=== PATIENT | female | born 1985 | race Caucasian/White ===

== ENCOUNTER 2016-08-11 18:46 | Emergency (ER) | payer OTHER ==
[~2016-08-11 18:46] MED LIST: LEVO2TA PO; MOTR200T40 PO; TYLE167L PO; [UNRECOGNIZED DRUG - OTHER] TOP
[2016-08-11 19:40] LABS: BASO % 0.7 % (0.0-1.0); EOS % 0.9 % (0.0-3.0); LARGE UNSTAINED CELL # 0.1 K/mm3 (0.0-0.4); LARGE UNSTAINED CELL % 2.1 % (0.0-4.0); LYMPH # 1.6 K/mm3 (1.5-4.5); LYMPH % 30.2 % (24.0-44.0); MEAN CORPUSCULAR HGB CONC 34.2 g/dl (32.0-36.5); MEAN CORPUSCULAR VOLUME 81.8 fl (80.0-96.0); MONO # 0.2 K/mm3 (0.0-0.8); MONO % 4.4 % (0.0-5.0); NEUTROPHILS # 3.3 K/mm3 (1.8-7.7); NEUTROPHILS % 61.7 % (36.0-66.0); PLATELET COUNT, AUTOMATED 184 k/mm3 (150-450); RED CELL DISTRIBUTION WIDTH 13.1 % (11.5-14.5); WHITE BLOOD COUNT 5.3 K/mm3 (4.0-10.0)
[2016-08-11 20:07] LABS: ALBUMIN 3.9 GM/DL (3.2-5.2); ALBUMIN/GLOBULIN RATIO 0.98 (1.00-1.93); ALKALINE PHOSPHATASE 49 U/L (45-117); ALT/SGPT 13 U/L (12-78); AMYLASE 34 U/L (25-115); ANION GAP 7 MEQ/L (8-16); AST/SGOT 8 U/L (15-37); BILIRUBIN,DIRECT 0.1 MG/DL (0.0-0.2); BILIRUBIN,TOTAL 0.4 MG/DL (0.2-1.0); BLOOD UREA NITROGEN 11 MG/DL (7-18); CALCIUM LEVEL 8.7 MG/DL (8.5-10.1); CARBON DIOXIDE LEVEL 27 MEQ/L (21-32); CHLORIDE LEVEL 106 MEQ/L (98-107); CREATININE FOR GFR 0.65 MG/DL (0.55-1.02); GLOMERULAR FILTRATION RATE > 60.0 (>60); GLUCOSE, FASTING 102 MG/DL (70-105); POTASSIUM SERUM 3.8 MEQ/L (3.5-5.1); SODIUM LEVEL 140 MEQ/L (136-145); T UPTAKE 30 % (30-39); TOTAL PROTEIN 7.9 GM/DL (6.4-8.2)
--- NOTE | 2016-08-11 20:43 | EDDOCDS ---
Physician Documentation [facility] Name: Noris John Age: 31 yrs Sex: Female : 1985 Arrival Date: 08/11/2016 Time: 18:46 Bed PR Private MD: SIXTO Garcia Disposition: 08/11/16 20:30 Discharged to Home/Self Care. Impression: Unspecified abdominal pain. - Condition is Stable. - Discharge Instructions: Abdominal Pain, Adult. - Prescriptions for ZOFRAN ODT 4 mg - dissolve 1 tablet by ORAL route 4 times per day As needed do not chew, do not swallow whole; 10 tablet. Simethicone 80 mg - chew 1 tablet by ORAL route after meals and before bedtime chewable tablet; 30 tablet. - Medication Reconciliation, Local Pharmacy Hours form. - Follow up: SIXTO Garcia; When: Call to arrange an appointment; Reason: Further diagnostic work-up, Recheck today's complaints, Continuance of care. Follow up: Emergency Department; When: As needed; Reason: Fever > 102F, Worsening of conditions. - Problem is new. - Symptoms are unchanged. Historical: - Allergies: no known allergies; - Home Meds: 1. levothyroxine 25 mcg Oral cap 1 cap once daily - PMHx: Thyroid problem; - PSHx: right toe surgery; - Social history: Smoking status: Patient states was never smoker of tobacco. No barriers to communication noted, The patient speaks fluent Yi, Speaks appropriately for age. - Family history: Not pertinent. - : The pt / caregiver states he / she is not on anticoagulants. Home medication list is obtained from the patient. - Exposure Risk Screening:: None identified. RESIDENTIAL YOUTH COUNSELOR: 08/11 18:53 LMP 07/18/2016 kr3 Vital Signs: 18:50 BP 128 / 68; Pulse 64; Resp 18; Temp 98.0; Pulse Ox 100% ; Weight 67.13 kg / 148 lbs; elp Height 5 ft. 7 in. (170.18 cm); Pain 5/10; 20:33 BP 115 / 66 LA Sitting (auto/reg); Pulse 56 MON; Resp 18 S; Temp 98.1(O); Pulse Ox 100% cln on R/A; Pain 0/10; 18:50 Body Mass Index 23.18 (67.13 kg, 170.18 cm) elp MDM: 19:15 Amylase Ordered. EDMS 19:15 Basic Metabolic Profile Ordered. EDMS 19:15 CBC with Diff Ordered. EDMS 19:15 Lipase Ordered. EDMS 19:15 Liver Profile Ordered. EDMS 19:15 Thyroid Profile Ordered. EDMS 19:15 UA Ordered. EDMS 19:49 Financial registration complete. gjb 20:00 [place] [place] was scanned into [employer] and attached to record. gjb 20:15 Basic Metabolic Profile Reviewed. ar2 20:15 Liver Profile Reviewed. ar2 20:15 UA Reviewed. ar2 20:15 Amylase Reviewed. ar2 20:15 CBC with Diff Reviewed. ar2 20:15 Lipase Reviewed. ar2 20:15 Thyroid Profile Reviewed. ar2 Signatures: Dispatcher [employer] Roslyn West, RN RN kmg1 Dilcia Cisneros RN RN kr3 Thee Roberts PA-C PA-C ar2 Allison Parra The chart was reviewed and I authenticate all verbal orders and agree with the evaluation and treatment provided.Attachments: 20:00 [facility] Payment Agreement gjb MTDD
--- NOTE | 2016-08-11 20:44 | EDDOCDS ---
Nurse's Notes [facility] Name: Noris John Age: 31 yrs Sex: Female : 1985 Arrival Date: 08/11/2016 Time: 18:46 Bed PR1 / 25 Private MD: SIXTO Garcia Diagnosis: Unspecified abdominal pain Presentation: 08/11 18:51 Presenting complaint: Patient states: stomach discomfort intermittent for past year. kr3 Since when having sweets noticed tingling in feet, which lasted 2 days. Reports when eats feels air into throat, nausea and vision problems. Risk factors: the patient reports no vaginal bleeding. Adult Sepsis Screening: The patient does not have new or worsening altered mentation. Patient's respiratory rate is less than 22. Systolic blood pressure is greater than 100. Patient has a qSOFA score of 0- Negative Sepsis Screen. Suicide/Homicide risk assessment- the patient denies having any suicidal and/or homicidal ideations and does not present with any other emotional, behavioral or mental health complaints. Status: The patient is a dependent. Transition of care: patient was not received from another setting of care. 18:51 Acuity: OMI Level 3 kr3 18:51 Method Of Arrival: Walkin/Carried/Asstd kr3 Triage Assessment: 18:53 General: Appears in no apparent distress, comfortable, Behavior is cooperative. Pain: kr3 Location: abdomen Pain currently is 6 out of 10 on a pain scale. Quality of pain is described as discomfort. Pt Declines HIV testing. GI: Reports bloating, gaseousness, indigestion. Derm: Skin is normal. UNDERWRITING MANAGER: 18:53 LMP 07/18/2016 kr3 Historical: - Allergies: no known allergies; - Home Meds: 1. levothyroxine 25 mcg Oral cap 1 cap once daily - PMHx: Thyroid problem; - PSHx: right toe surgery; - Social history: Smoking status: Patient states was never smoker of tobacco. No barriers to communication noted, The patient speaks fluent Cypriot, Speaks appropriately for age. - Family history: Not pertinent. - : The pt / caregiver states he / she is not on anticoagulants. Home medication list is obtained from the patient. - Exposure Risk Screening:: None identified. Screenin:40 Screening information is obtained from the patient. Fall risk: No risks identified. kmg1 Assistance ADL's: requires no assistance with activities of daily living. Abuse/DV Screen: The patient / caregiver reports he/she is: not in a situation that causes fear, pain or injury. Nutritional screening: No deficits noted. Advance Directives: Currently, there is no health care proxy. There is no active DNR order. home support is adequate. Assessment: 20:40 General: Appears in no apparent distress, comfortable, Behavior is appropriate for age, kmg1 cooperative, pleasant. Pain: Location: abdomen. GI: Abdomen is non- distended NA Abd is soft and non tender X 4 quads. Reports chronic abdominal discomfort. Vital Signs: 18:50 BP 128 / 68; Pulse 64; Resp 18; Temp 98.0; Pulse Ox 100% ; Weight 67.13 kg; Height 5 elp ft. 7 in. (170.18 cm); Pain 5/10; 20:33 BP 115 / 66 LA Sitting (auto/reg); Pulse 56 MON; Resp 18 S; Temp 98.1(O); Pulse Ox 100% cln on R/A; Pain 0/10; 18:50 Body Mass Index 23.18 (67.13 kg, 170.18 cm) [facility] Vitals: 18:50 Log In Time: August 11, 2016 at 18:48. [facility] ED Course: 18:49 Patient visited by Rosetta Mcallister PCA. elp 18:49 Radha [facility] is Private Physician. elp 18:49 Patient moved to Waiting elp 18:50 Patient visited by Rosetta Mcallister PCA. elp 18:50 Patient moved to Pre RCE elp 18:53 Triage Initiated kr3 18:55 Patient moved to Triage 2 kr3 18:55 Patient moved to Triage 1 kr3 19:08 [facility] ar2 19:08 Amaury Sainz DO is Attending Physician. ar2 19:08 Patient visited by Thee Roberts PA-C. ar2 19:34 Thyroid Profile Sent. cln 19:34 Amylase Sent. cln 19:34 Basic Metabolic Profile Sent. cln 19:34 CBC with Diff Sent. cln 19:34 Lipase Sent. cln 19:34 Liver Profile Sent. cln 19:[address] [facility] cln 20:00 [facility] Payment Agreement was scanned into [employer] and attached to record. gjb 20:14 Patient moved to PR mb9 20:30 SIXTO Garcia is Referral Physician. ar2 20:33 Patient visited by Luisa Najera PCA. cln 20:40 The patient / caregiver is instructed regarding the plan of care and ED course. kmg1 20:40 No IV's were initiated during this patient's visit. No procedures done that require kmg1 assistance. Order Results: Lab Order: Amylase; SPEC'M 08/11/16 19:31 Test: AMYLASE; Value: 34; Range: 25-115; Units: U/L; Status: F Lab Order: Basic Metabolic Profile; SPEC'M 08/11/16 19:31 Test: GLUCOSE, FASTING; Value: 102; Range: 70-105; Units: MG/DL; Status: F Test: BLOOD UREA NITROGEN; Value: 11; Range: 7-18; Units: MG/DL; Status: F Test: CREATININE FOR GFR; Value: 0.65; Range: 0.55-1.02; Units: MG/DL; Status: F Test: GLOMERULAR FILTRATION RATE; Value: > 60.0; Range: >60; Status: F Test: SODIUM LEVEL; Value: 140; Range: 136-145; Units: MEQ/L; Status: F Test: POTASSIUM SERUM; Value: 3.8; Range: 3.5-5.1; Units: MEQ/L; Status: F Test: CHLORIDE LEVEL; Value: 106; Range: 98-107; Units: MEQ/L; Status: F Test: CARBON DIOXIDE LEVEL; Value: 27; Range: 21-32; Units: MEQ/L; Status: F Test: ANION GAP; Value: 7; Range: 8-16; Abnormal: Below low normal; Units: MEQ/L; Status: F Test: CALCIUM LEVEL; Value: 8.7; Range: 8.5-10.1; Units: MG/DL; Status: F Test Note: ; Units are mL/min/1.73 m2 Chronic Kidney Disease Staging per NKF: Stage I & II GFR >=60 Normal to Mildly Decreased Stage III GFR 30-59 Moderately Decreased Stage IV GFR 15-29 Severely Decreased Stage V GFR <15 Very Little GFR Left ESRD GFR <15 on BOND TRADER Lab Order: CBC with Diff; SPEC'M 08/11/16 19:31 Test: WHITE BLOOD COUNT; Value: 5.3; Range: 4.0-10.0; Units: K/mm3; Status: F Test: RED BLOOD COUNT; Value: 4.43; Range: 4.00-5.40; Units: M/mm3; Status: F Test: HEMOGLOBIN; Value: 12.4; Range: 12.0-16.0; Units: g/dl; Status: F Test: HEMATOCRIT; Value: 36.2; Range: 36.0-47.0; Units: %; Status: F Test: MEAN CORPUSCULAR VOLUME; Value: 81.8; Range: 80.0-96.0; Units: fl; Status: F Test: MEAN CORPUSCULAR HEMOGLOBIN; Value: 28.0; Range: 27.0-33.0; Units: pg; Status: F Test: MEAN CORPUSCULAR HGB CONC; Value: 34.2; Range: 32.0-36.5; Units: g/dl; Status: F Test: RED CELL DISTRIBUTION WIDTH; Value: 13.1; Range: 11.5-14.5; Units: %; Status: F Test: PLATELET COUNT, AUTOMATED; Value: 184; Range: 150-450; Units: k/mm3; Status: F Test: NEUTROPHILS %; Value: 61.7; Range: 36.0-66.0; Units: %; Status: F Test: LYMPH %; Value: 30.2; Range: 24.0-44.0; Units: %; Status: F Test: MONO %; Value: 4.4; Range: 0.0-5.0; Units: %; Status: F Test: EOS %; Value: 0.9; Range: 0.0-3.0; Units: %; Status: F Test: BASO %; Value: 0.7; Range: 0.0-1.0; Units: %; Status: F Test: LARGE UNSTAINED CELL %; Value: 2.1; Range: 0.0-4.0; Units: %; Status: F Test: NEUTROPHILS #; Value: 3.3; Range: 1.8-7.7; Units: K/mm3; Status: F Test: LYMPH #; Value: 1.6; Range: 1.5-4.5; Units: K/mm3; Status: F Test: MONO #; Value: 0.2; Range: 0.0-0.8; Units: K/mm3; Status: F Test: EOS #; Value: 0.0; Range: 0.0-0.50; Units: K/mm3; Status: F Test: BASO #; Value: 0.0; Range: 0.0-0.2; Units: K/mm3; Status: F Test: LARGE UNSTAINED CELL #; Value: 0.1; Range: 0.0-0.4; Units: K/mm3; Status: F Lab Order: Lipase; [facility]' 08/11/16 19:31 Test: LIPASE; Value: 132; Range: 73-393; Units: U/L; Status: F Lab Order: Liver Profile; [facility]' 08/11/16 19:31 Test: AST/SGOT; Value: 8; Range: 15-37; Abnormal: Below low normal; Units: U/L; Status: F Test: ALT/SGPT; Value: 13; Range: 12-78; Units: U/L; Status: F Test: ALKALINE PHOSPHATASE; Value: 49; Range: 45-117; Units: U/L; Status: F Test: BILIRUBIN,TOTAL; Value: 0.4; Range: 0.2-1.0; Units: MG/DL; Status: F Test: BILIRUBIN,DIRECT; Value: 0.1; Range: 0.0-0.2; Units: MG/DL; Status: F Test: TOTAL PROTEIN; Value: 7.9; Range: 6.4-8.2; Units: GM/DL; Status: F Test: ALBUMIN; Value: 3.9; Range: 3.2-5.2; Units: GM/DL; Status: F Test: ALBUMIN/GLOBULIN RATIO; Value: 0.98; Range: 1.00-1.93; Abnormal: Below low normal; Status: F Lab Order: Thyroid Profile; [facility]' 08/11/16 19:31 Test: T UPTAKE; Value: 30; Range: 30-39; Units: %; Status: F Test: THYROXINE (T4); Value: 10.0; Range: 4.5-12.0; Units: UG/DL; Status: F Test: FREE THYROXINE INDEX; Value: 3.0; Range: 1.3-4.8; Units: %; Status: F Test: THYROID STIMULATING HORMONE; Value: 3.740; Range: 0.358-3.740; Units: uIU/ML; Status: F Lab Order: UA; SPEC'M 08/11/16 19:40 Test: APPEARANCE, URINE; Value: CLEAR; Range: CLEAR; Status: F Test: COLOR, URINE; Value: YELLOW; Range: YELLOW; Status: F Test: PH,URINE; Value: 6.0; Range: 5.0-9.0; Units: UNITS; Status: F Test: SPECIFIC GRAVITY URINE AUTO; Value: 1.024; Range: 1.002-1.035; Status: F Test: PROTEIN, URINE AUTO; Value: NEGATIVE; Range: NEGATIVE; Units: mg/dL; Status: F Test: GLUCOSE, URINE (UA) AUTO; Value: NEGATIVE; Range: NEGATIVE; Units: mg/dL; Status: F Test: KETONE, URINE AUTO; Value: NEGATIVE; Range: NEGATIVE; Units: mg/dL; Status: F Test: UROBILINOGEN, URINE AUTO; Value: 0.2; Range: 0.0-2.0; Units: mg/dL; Status: F Test: BILIRUBIN, URINE AUTO; Value: NEGATIVE; Range: NEGATIVE; Status: F Test: NITRITE, URINE AUTO; Value: NEGATIVE; Range: NEGATIVE; Status: F Test: LEUKOCYTE ESTERASE, URINE AUTO; Value: NEGATIVE; Range: NEGATIVE; Status: F Test: BLOOD, URINE BLOOD; Value: NEGATIVE; Range: NEGATIVE; Status: F Test: WBC, URINE AUTO; Value: 0; Range: 0-3; Units: /HPF; Status: F Test: RBC, URINE AUTO; Value: 1; Range: 0-3; Units: /HPF; Status: F Test: BACTERIA, URINE AUTO; Value: 1+; Range: NEGATIVE; Abnormal: Above high normal; Status: F Test: SQUAMOUS EPITHELIAL CELL UR AU; Value: 1; Range: 0-6; Units: /HPF; Status: F Test: MUCUS, URINE; Value: SMALL; Range: NEGATIVE; Status: F Test: HYALINE CAST, URINE AUTO; Value: 0; Range: 0-1; Units: /LPF; Status: F Outcome: 20:30 Discharge ordered by Provider. ar2 20:40 Discharge Assessment: Patient awake, alert and oriented x 3. No cognitive and/or kmg1 functional deficits noted. Patient verbalized understanding of disposition instructions. Patient awake and alert. patient administered narcotics - no. The following High Risk Discharge criteria are identified: None. Discharged to home ambulatory. Condition: stable. Discharge instructions given to patient, Instructed on discharge instructions, follow up and referral plans. medication usage, Demonstrated understanding of instructions, medications, Pt was receptive of discharge instructions/ teaching. Prescriptions given X 2. No special radiology studies were completed. Property sent home with patient. 20:42 [place] [facility] [place] Signatures: Roslyn Cheek, RN RN kmg1 Dilcia Cisneros,RN RN kr3 Thee Roberts, PA-Torie PAJun ar2 Rosetta Mcallister, SUPERINTENDENT REFUSE DISPOSAL SUPERINTENDENT REFUSE DISPOSAL Jean-Paul LopezRN RN mb9 Allison Parra Crystal, SUPERINTENDENT REFUSE DISPOSAL SUPERINTENDENT REFUSE DISPOSAL cln [place]
--- NOTE | 2016-08-13 21:44 | EDDOCDS ---
Physician Documentation [facility] Name: Noris John Age: 31 yrs Sex: Female : 1985 Arrival Date: 08/11/2016 Time: 18:46 Bed PR Private MD: SIXTO Garcia Disposition: 08/11/16 20:30 Discharged to Home/Self Care. Impression: Unspecified abdominal pain. - Condition is Stable. - Discharge Instructions: Abdominal Pain, Adult. - Prescriptions for ZOFRAN ODT 4 mg - dissolve 1 tablet by ORAL route 4 times per day As needed do not chew, do not swallow whole; 10 tablet. Simethicone 80 mg - chew 1 tablet by ORAL route after meals and before bedtime chewable tablet; 30 tablet. - Medication Reconciliation, Local Pharmacy Hours form. - Follow up: SIXTO Garcia; When: Call to arrange an appointment; Reason: Further diagnostic work-up, Recheck today's complaints, Continuance of care. Follow up: Emergency Department; When: As needed; Reason: Fever > 102F, Worsening of conditions. - Problem is new. - Symptoms are unchanged. Historical: - Allergies: no known allergies; - Home Meds: 1. levothyroxine 25 mcg Oral cap 1 cap once daily - PMHx: Thyroid problem; - PSHx: right toe surgery; - Social history: Smoking status: Patient states was never smoker of tobacco. No barriers to communication noted, The patient speaks fluent Turkmen, Speaks appropriately for age. - Family history: Not pertinent. - : The pt / caregiver states he / she is not on anticoagulants. Home medication list is obtained from the patient. - Exposure Risk Screening:: None identified. PATIENT CARE NURSING ASSISTANT: 08/11 18:53 LMP 07/18/2016 kr3 Vital Signs: 18:50 BP 128 / 68; Pulse 64; Resp 18; Temp 98.0; Pulse Ox 100% ; Weight 67.13 kg / 148 lbs; elp Height 5 ft. 7 in. (170.18 cm); Pain 5/10; 20:33 BP 115 / 66 LA Sitting (auto/reg); Pulse 56 MON; Resp 18 S; Temp 98.1(O); Pulse Ox 100% cln on R/A; Pain 0/10; 18:50 Body Mass Index 23.18 (67.13 kg, 170.18 cm) elp MDM: 19:15 Amylase Ordered. EDMS 19:15 Basic Metabolic Profile Ordered. EDMS 19:15 CBC with Diff Ordered. EDMS 19:15 Lipase Ordered. EDMS 19:15 Liver Profile Ordered. EDMS 19:15 Thyroid Profile Ordered. EDMS 19:15 UA Ordered. EDMS 19:49 Financial registration complete. gjb 20:00 [place] was scanned into [employer] and attached to record. gjb 20:15 Basic Metabolic Profile Reviewed. ar2 20:15 Liver Profile Reviewed. ar2 20:15 UA Reviewed. ar2 20:15 Amylase Reviewed. ar2 20:15 CBC with Diff Reviewed. ar2 20:15 Lipase Reviewed. ar2 20:15 Thyroid Profile Reviewed. ar2 08/12 10:45 T-Sheet-- Draft Copy was scanned into [employer] and attached to record. gb Signatures: Dispatcher [employer] EDND Roslyn Cheek RN RN kmg1 Kinsey Martinez, Jaylen Reg gb Dilcia Cisneros RN RN kr3 Thee Roberts PA-Torie PA-Torie ar2 Allison Parra The chart was reviewed and I authenticate all verbal orders and agree with the evaluation and treatment provided.Attachments: 08/11 20:00 [place] [place] gjb 08/12 10:45 T-Sheet-- Draft Copy gb Chart Complete MTDD
--- NOTE | 2016-08-13 21:44 | EDDOCDS ---
Physician Documentation [facility] Name: Noris John Age: 31 yrs Sex: Female : 1985 Arrival Date: 08/11/2016 Time: 18:46 Bed PR Private MD: SIXTO Garcia Disposition: 08/11/16 20:30 Discharged to Home/Self Care. Impression: Unspecified abdominal pain. - Condition is Stable. - Discharge Instructions: Abdominal Pain, Adult. - Prescriptions for ZOFRAN ODT 4 mg - dissolve 1 tablet by ORAL route 4 times per day As needed do not chew, do not swallow whole; 10 tablet. Simethicone 80 mg - chew 1 tablet by ORAL route after meals and before bedtime chewable tablet; 30 tablet. - Medication Reconciliation, Local Pharmacy Hours form. - Follow up: SIXTO Garcia; When: Call to arrange an appointment; Reason: Further diagnostic work-up, Recheck today's complaints, Continuance of care. Follow up: Emergency Department; When: As needed; Reason: Fever > 102F, Worsening of conditions. - Problem is new. - Symptoms are unchanged. Historical: - Allergies: no known allergies; - Home Meds: 1. levothyroxine 25 mcg Oral cap 1 cap once daily - PMHx: Thyroid problem; - PSHx: right toe surgery; - Social history: Smoking status: Patient states was never smoker of tobacco. No barriers to communication noted, The patient speaks fluent Latvian, Speaks appropriately for age. - Family history: Not pertinent. - : The pt / caregiver states he / she is not on anticoagulants. Home medication list is obtained from the patient. - Exposure Risk Screening:: None identified. CURTAIN FITTER: 08/11 18:53 LMP 07/18/2016 kr3 Vital Signs: 18:50 BP 128 / 68; Pulse 64; Resp 18; Temp 98.0; Pulse Ox 100% ; Weight 67.13 kg / 148 lbs; elp Height 5 ft. 7 in. (170.18 cm); Pain 5/10; 20:33 BP 115 / 66 LA Sitting (auto/reg); Pulse 56 MON; Resp 18 S; Temp 98.1(O); Pulse Ox 100% cln on R/A; Pain 0/10; 18:50 Body Mass Index 23.18 (67.13 kg, 170.18 cm) elp MDM: 19:15 Amylase Ordered. EDMS 19:15 Basic Metabolic Profile Ordered. EDMS 19:15 CBC with Diff Ordered. EDMS 19:15 Lipase Ordered. EDMS 19:15 Liver Profile Ordered. EDMS 19:15 Thyroid Profile Ordered. EDMS 19:15 UA Ordered. EDMS 19:49 Financial registration complete. gjb 20:00 [place] [place] Payment Agreement was scanned into [employer] and attached to record. gjb 20:15 Basic Metabolic Profile Reviewed. ar2 20:15 Liver Profile Reviewed. ar2 20:15 UA Reviewed. ar2 20:15 Amylase Reviewed. ar2 20:15 CBC with Diff Reviewed. ar2 20:15 Lipase Reviewed. ar2 20:15 Thyroid Profile Reviewed. ar2 08/12 10:45 T-Sheet-- Draft Copy was scanned into [employer] and attached to record. gb Signatures: Dispatcher [employer] EDAR Roslyn Cheek RN RN kmg1 Kinsey Martinez, Jaylen Reg gb Dilcia Cisneros RN RN kr3 Thee Roberts PA-Torie PA-Torie ar2 Allison Parra The chart was reviewed and I authenticate all verbal orders and agree with the evaluation and treatment provided.Attachments: 08/11 20:00 [facility] Payment Agreement gjb 08/12 10:45 T-Sheet-- Draft Copy gb Chart Complete MTDD
--- NOTE | 2016-08-13 21:45 | EDDOCDS ---
Nurse's Notes [facility] Name: Noris John Age: 31 yrs Sex: Female : 1985 Arrival Date: 08/11/2016 Time: 18:46 Bed PR1 / 25 Private MD: SIXTO Garcia Diagnosis: Unspecified abdominal pain Presentation: 08/11 18:51 Presenting complaint: Patient states: stomach discomfort intermittent for past year. kr3 Since when having sweets noticed tingling in feet, which lasted 2 days. Reports when eats feels air into throat, nausea and vision problems. Risk factors: the patient reports no vaginal bleeding. Adult Sepsis Screening: The patient does not have new or worsening altered mentation. Patient's respiratory rate is less than 22. Systolic blood pressure is greater than 100. Patient has a qSOFA score of 0- Negative Sepsis Screen. Suicide/Homicide risk assessment- the patient denies having any suicidal and/or homicidal ideations and does not present with any other emotional, behavioral or mental health complaints. Status: The patient is a dependent. Transition of care: patient was not received from another setting of care. 18:51 Acuity: OMI Level 3 kr3 18:51 Method Of Arrival: Walkin/Carried/Asstd kr3 Triage Assessment: 18:53 General: Appears in no apparent distress, comfortable, Behavior is cooperative. Pain: kr3 Location: abdomen Pain currently is 6 out of 10 on a pain scale. Quality of pain is described as discomfort. Pt Declines HIV testing. GI: Reports bloating, gaseousness, indigestion. Derm: Skin is normal. 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 levothyroxine 25 mcg Oral cap 1 cap once daily - PMHx: Thyroid problem; - PSHx: right toe surgery; - Social history: Smoking status: Patient states was never smoker of tobacco. No barriers to communication noted, The patient speaks fluent Indonesian, Speaks appropriately for age. - Family history: Not pertinent. - : The pt / caregiver states he / she is not on anticoagulants. Home medication list is obtained from the patient. - Exposure Risk Screening:: None identified. Screenin:40 Screening information is obtained from the patient. Fall risk: No risks identified. kmg1 Assistance ADL's: requires no assistance with activities of daily living. Abuse/DV Screen: The patient / caregiver reports he/she is: not in a situation that causes fear, pain or injury. Nutritional screening: No deficits noted. Advance Directives: Currently, there is no health care proxy. There is no active DNR order. home support is adequate. Assessment: 20:40 General: Appears in no apparent distress, comfortable, Behavior is appropriate for age, kmg1 cooperative, pleasant. Pain: Location: abdomen. GI: Abdomen is non- distended NA Abd is soft and non tender X 4 quads. Reports chronic abdominal discomfort. Vital Signs: 18:50 BP 128 / 68; Pulse 64; Resp 18; Temp 98.0; Pulse Ox 100% ; Weight 67.13 kg; Height 5 elp ft. 7 in. (170.18 cm); Pain 5/10; 20:33 BP 115 / 66 LA Sitting (auto/reg); Pulse 56 MON; Resp 18 S; Temp 98.1(O); Pulse Ox 100% cln on R/A; Pain 0/10; 18:50 Body Mass Index 23.18 (67.13 kg, 170.18 cm) [facility] Vitals: 18:50 Log In Time: August 11, 2016 at 18:48. [facility] ED Course: 18:49 Patient visited by Rosetta Mcallister PCA. elp 18:49 Radha [facility] is Private Physician. elp 18:49 Patient moved to Waiting elp 18:50 Patient visited by Rosetta Mcallister PCA. elp 18:50 Patient moved to Pre RCE elp 18:53 Triage Initiated kr3 18:55 Patient moved to Triage 2 kr3 18:55 Patient moved to Triage 1 kr3 19:08 Thee Roberts PA-C is PSYCHIATRICP. ar2 19:08 Amaury Sainz DO is Attending Physician. ar2 19:08 Patient visited by Thee Roberts PA-C. ar2 19:34 Thyroid Profile Sent. cln 19:34 Amylase Sent. cln 19:34 Basic Metabolic Profile Sent. cln 19:34 CBC with Diff Sent. cln 19:34 Lipase Sent. cln 19:34 Liver Profile Sent. cln 19:35 Patient moved to [facility] cln 20:00 [facility] Payment Agreement was scanned into [employer] and attached to record. gjb 20:14 Patient moved to [place] / mb9 20:30 SIXTO Garcia is Referral Physician. ar2 20:33 Patient visited by Luisa Najera PCA. cln 20:40 The patient / caregiver is instructed regarding the plan of care and ED course. kmg1 20:40 No IV's were initiated during this patient's visit. No procedures done that require kmg1 assistance. 08/12 10:45 T-Sheet-- Draft Copy was scanned into [employer] and attached to record. gb Order Results: Lab Order: Amylase; SPEC'M 08/11/16 19:31 Test: AMYLASE; Value: 34; Range: 25-115; Units: U/L; Status: F Lab Order: Basic Metabolic Profile; SPEC'M 08/11/16 19:31 Test: GLUCOSE, FASTING; Value: 102; Range: 70-105; Units: MG/DL; Status: F Test: BLOOD UREA NITROGEN; Value: 11; Range: 7-18; Units: MG/DL; Status: F Test: CREATININE FOR GFR; Value: 0.65; Range: 0.55-1.02; Units: MG/DL; Status: F Test: GLOMERULAR FILTRATION RATE; Value: > 60.0; Range: >60; Status: F Test: SODIUM LEVEL; Value: 140; Range: 136-145; Units: MEQ/L; Status: F Test: POTASSIUM SERUM; Value: 3.8; Range: 3.5-5.1; Units: MEQ/L; Status: F Test: CHLORIDE LEVEL; Value: 106; Range: 98-107; Units: MEQ/L; Status: F Test: CARBON DIOXIDE LEVEL; Value: 27; Range: 21-32; Units: MEQ/L; Status: F Test: ANION GAP; Value: 7; Range: 8-16; Abnormal: Below low normal; Units: MEQ/L; Status: F Test: CALCIUM LEVEL; Value: 8.7; Range: 8.5-10.1; Units: MG/DL; Status: F Test Note: ; Units are mL/min/1.73 m2 Chronic Kidney Disease Staging per NKF: Stage I & II GFR >=60 Normal to Mildly Decreased Stage III GFR 30-59 Moderately Decreased Stage IV GFR 15-29 Severely Decreased Stage V GFR <15 Very Little GFR Left ESRD GFR <15 on CUSTOMER AGENT Lab Order: CBC with Diff; SPEC'M 08/11/16 19:31 Test: WHITE BLOOD COUNT; Value: 5.3; Range: 4.0-10.0; Units: K/mm3; Status: F Test: RED BLOOD COUNT; Value: 4.43; Range: 4.00-5.40; Units: M/mm3; Status: F Test: HEMOGLOBIN; Value: 12.4; Range: 12.0-16.0; Units: g/dl; Status: F Test: HEMATOCRIT; Value: 36.2; Range: 36.0-47.0; Units: %; Status: F Test: MEAN CORPUSCULAR VOLUME; Value: 81.8; Range: 80.0-96.0; Units: fl; Status: F Test: MEAN CORPUSCULAR HEMOGLOBIN; Value: 28.0; Range: 27.0-33.0; Units: pg; Status: F Test: MEAN CORPUSCULAR HGB CONC; Value: 34.2; Range: 32.0-36.5; Units: g/dl; Status: F Test: RED CELL DISTRIBUTION WIDTH; Value: 13.1; Range: 11.5-14.5; Units: %; Status: F Test: PLATELET COUNT, AUTOMATED; Value: 184; Range: 150-450; Units: k/mm3; Status: F Test: NEUTROPHILS %; Value: 61.7; Range: 36.0-66.0; Units: %; Status: F Test: LYMPH %; Value: 30.2; Range: 24.0-44.0; Units: %; Status: F Test: MONO %; Value: 4.4; Range: 0.0-5.0; Units: %; Status: F Test: EOS %; Value: 0.9; Range: 0.0-3.0; Units: %; Status: F Test: BASO %; Value: 0.7; Range: 0.0-1.0; Units: %; Status: F Test: LARGE UNSTAINED CELL %; Value: 2.1; Range: 0.0-4.0; Units: %; Status: F Test: NEUTROPHILS #; Value: 3.3; Range: 1.8-7.7; Units: K/mm3; Status: F Test: LYMPH #; Value: 1.6; Range: 1.5-4.5; Units: K/mm3; Status: F Test: MONO #; Value: 0.2; Range: 0.0-0.8; Units: K/mm3; Status: F Test: EOS #; Value: 0.0; Range: 0.0-0.50; Units: K/mm3; Status: F Test: BASO #; Value: 0.0; Range: 0.0-0.2; Units: K/mm3; Status: F Test: LARGE UNSTAINED CELL #; Value: 0.1; Range: 0.0-0.4; Units: K/mm3; Status: F Lab Order: Lipase; [facility]' 08/11/16 19:31 Test: LIPASE; Value: 132; Range: 73-393; Units: U/L; Status: F Lab Order: Liver Profile; [facility]' 08/11/16 19:31 Test: AST/SGOT; Value: 8; Range: 15-37; Abnormal: Below low normal; Units: U/L; Status: F Test: ALT/SGPT; Value: 13; Range: 12-78; Units: U/L; Status: F Test: ALKALINE PHOSPHATASE; Value: 49; Range: 45-117; Units: U/L; Status: F Test: BILIRUBIN,TOTAL; Value: 0.4; Range: 0.2-1.0; Units: MG/DL; Status: F Test: BILIRUBIN,DIRECT; Value: 0.1; Range: 0.0-0.2; Units: MG/DL; Status: F Test: TOTAL PROTEIN; Value: 7.9; Range: 6.4-8.2; Units: GM/DL; Status: F Test: ALBUMIN; Value: 3.9; Range: 3.2-5.2; Units: GM/DL; Status: F Test: ALBUMIN/GLOBULIN RATIO; Value: 0.98; Range: 1.00-1.93; Abnormal: Below low normal; Status: F Lab Order: Thyroid Profile; [facility]' 08/11/16 19:31 Test: T UPTAKE; Value: 30; Range: 30-39; Units: %; Status: F Test: THYROXINE (T4); Value: 10.0; Range: 4.5-12.0; Units: UG/DL; Status: F Test: FREE THYROXINE INDEX; Value: 3.0; Range: 1.3-4.8; Units: %; Status: F Test: THYROID STIMULATING HORMONE; Value: 3.740; Range: 0.358-3.740; Units: uIU/ML; Status: F Lab Order: UA; SPEC'M 08/11/16 19:40 Test: APPEARANCE, URINE; Value: CLEAR; Range: CLEAR; Status: F Test: COLOR, URINE; Value: YELLOW; Range: YELLOW; Status: F Test: PH,URINE; Value: 6.0; Range: 5.0-9.0; Units: UNITS; Status: F Test: SPECIFIC GRAVITY URINE AUTO; Value: 1.024; Range: 1.002-1.035; Status: F Test: PROTEIN, URINE AUTO; Value: NEGATIVE; Range: NEGATIVE; Units: mg/dL; Status: F Test: GLUCOSE, URINE (UA) AUTO; Value: NEGATIVE; Range: NEGATIVE; Units: mg/dL; Status: F Test: KETONE, URINE AUTO; Value: NEGATIVE; Range: NEGATIVE; Units: mg/dL; Status: F Test: UROBILINOGEN, URINE AUTO; Value: 0.2; Range: 0.0-2.0; Units: mg/dL; Status: F Test: BILIRUBIN, URINE AUTO; Value: NEGATIVE; Range: NEGATIVE; Status: F Test: NITRITE, URINE AUTO; Value: NEGATIVE; Range: NEGATIVE; Status: F Test: LEUKOCYTE ESTERASE, URINE AUTO; Value: NEGATIVE; Range: NEGATIVE; Status: F Test: BLOOD, URINE BLOOD; Value: NEGATIVE; Range: NEGATIVE; Status: F Test: WBC, URINE AUTO; Value: 0; Range: 0-3; Units: /HPF; Status: F Test: RBC, URINE AUTO; Value: 1; Range: 0-3; Units: /HPF; Status: F Test: BACTERIA, URINE AUTO; Value: 1+; Range: NEGATIVE; Abnormal: Above high normal; Status: F Test: SQUAMOUS EPITHELIAL CELL UR AU; Value: 1; Range: 0-6; Units: /HPF; Status: F Test: MUCUS, URINE; Value: SMALL; Range: NEGATIVE; Status: F Test: HYALINE CAST, URINE AUTO; Value: 0; Range: 0-1; Units: /LPF; Status: F Outcome: 08/11 20:30 Discharge ordered by Provider. ar2 20:40 Discharge Assessment: Patient awake, alert and oriented x 3. No cognitive and/or kmg1 functional deficits noted. Patient verbalized understanding of disposition instructions. Patient awake and alert. patient administered narcotics - no. The following High Risk Discharge criteria are identified: None. Discharged to home ambulatory. Condition: stable. Discharge instructions given to patient, Instructed on discharge instructions, follow up and referral plans. medication usage, Demonstrated understanding of instructions, medications, Pt was receptive of discharge instructions/ teaching. Prescriptions given X 2. No special radiology studies were completed. Property sent home with patient. 20:42 Patient left the ED. [facility] Signatures: Roslyn Cheek, RN RN kmg1 Kinsey Martinez, Reg Reg gb Dilcai Cisneros RN RN kr3 Thee Roberts, PA-C PA-C ar2 Rosetta Mcallister, TIN RECOVERY WORKER TIN RECOVERY WORKER Jean-Paul Lopez RN RN [id number] Allison Parra Crystal, TIN RECOVERY WORKER TIN RECOVERY WORKER cln Chart Complete MTDTabatha
== END 2016-08-11 20:42 | disposition home or self-care (01) ==
LOC: M ED 18:46
DX: R10.9 Unspecified abdominal pain (principal); E07.9 Disorder of thyroid, unspecified; Z79.899 Other long term (current) drug therapy

== ENCOUNTER → 2017-01-22 | Outpatient (REF) | payer OTHER ==
[~2017-01-22] MED LIST changes: -MOTR200T40 PO; +MOTR200T44 PO
[2017-01-22 17:17] LABS: FREE T4 1.25 NG/DL (0.76-1.46)
[2017-01-22 18:58] LABS: MEAN CORPUSCULAR HEMOGLOBIN 28.7 pg (27.0-33.0); MEAN CORPUSCULAR VOLUME 86.8 fl (80.0-96.0); RED CELL DISTRIBUTION WIDTH 12.9 % (11.5-14.5); WHITE BLOOD COUNT 5.2 K/mm3 (4.0-10.0)
== END ==
LOC: M SFHCLERA 14:23
PROVIDERS: ATTEND Family Medicine
DX: E03.9 Hypothyroidism, unspecified (principal); D50.9 Iron deficiency anemia, unspecified
CPT/HCPCS: 82728; 83540; 84439; 84443; 85027; G0463

== ENCOUNTER → 2017-05-26 | Outpatient (REF) | payer OTHER, SELFPAY ==
[~2017-05-26] MED LIST changes: +[UNRECOGNIZED DRUG - CODE] TOP; -[UNRECOGNIZED DRUG - OTHER] TOP
[2017-05-26 18:50] LABS: FERRITIN 23 NG/ML (8-252)
== END ==
LOC: M SFHCLERA 14:53
PROVIDERS: ATTEND Family Medicine
DX: R45.4 Irritability and anger (principal); F43.9 Reaction to severe stress, unspecified; D50.9 Iron deficiency anemia, unspecified

== ENCOUNTER → 2018-03-24 | Outpatient (REF) | payer SELFPAY, OTHER ==
[2018-03-24 18:25] LABS: BASO # 0.1 10^3/uL (0.0-0.2); BASO % 0.7 % (0.0-1.0); EOS # 0.1 10^3/uL (0.0-0.50); EOS % 1.3 % (0.0-3.0); HEMATOCRIT 37.3 % (36.0-47.0); IMMATURE GRANULOCYTE % 0.3 % (0-3.0); LYMPH # 1.9 10^3/uL (1.5-4.5); LYMPH % 27.7 % (24.0-44.0); MEAN CORPUSCULAR HEMOGLOBIN 28.2 pg (27.0-33.0); MEAN CORPUSCULAR HGB CONC 32.2 g/dl (32.0-36.5); MEAN CORPUSCULAR VOLUME 87.6 fl (80.0-96.0); MONO # 0.4 10^3/uL (0.0-0.8); MONO % 5.9 % (0.0-5.0); NEUTROPHILS # 4.4 10^3/uL (1.8-7.7); NEUTROPHILS % 64.1 % (36.0-66.0); PLATELET COUNT, AUTOMATED 239 10^3/uL (150-450); RED BLOOD COUNT 4.26 10^6/uL (4.00-5.40); RED CELL DISTRIBUTION WIDTH 12.9 % (11.5-14.5); WHITE BLOOD COUNT 6.8 10^3/uL (4.0-10.0)
[2018-03-24 19:18] LABS: ESTIMATED AVERAGE GLUCOSE 88 MG/DL (60-110); HEMOGLOBIN A1c 4.7 %
[2018-03-24 19:23] LABS: ANION GAP 7 MEQ/L (8-16); BLOOD UREA NITROGEN 17 MG/DL (7-18); CARBON DIOXIDE LEVEL 28 MEQ/L (21-32); CHLORIDE LEVEL 107 MEQ/L (98-107); CREATININE FOR GFR 0.77 MG/DL (0.55-1.30); FERRITIN 11 NG/ML (8-252); GLOMERULAR FILTRATION RATE > 60.0 (>60); GLUCOSE, FASTING 86 MG/DL (70-100); IRON (FE) 76 UG/DL (50-170); PERCENT SATURATION 17.6 % (13.2-45.0); POTASSIUM SERUM 4.7 MEQ/L (3.5-5.1); SODIUM LEVEL 142 MEQ/L (136-145); THYROID STIMULATING HORMONE 0.889 uIU/ML (0.358-3.740); TOTAL IRON BINDING CAPACITY 433 UG/DL (250-450)
== END ==
LOC: M SFHCLERA 11:43
DX: E03.9 Hypothyroidism, unspecified (principal); D50.9 Iron deficiency anemia, unspecified; E87.5 Hyperkalemia; Z13.1 Encounter for screening for diabetes mellitus
CPT/HCPCS: 83550

== ENCOUNTER → 2018-08-07 | Outpatient (REF) | payer MEDICAID, OTHER, SELFPAY | LOC: M SFHCLERA 14:34 | PROVIDERS: ATTEND Family Medicine | DX: E03.9 Hypothyroidism, unspecified (principal) ==

== ENCOUNTER → 2018-12-23 | Outpatient (REF) | payer OTHER ==
[2018-12-23 16:43] LABS: BASO % 0.6 % (0.0-1.0); EOS # 0.1 10^3/uL (0.0-0.50); EOS % 0.9 % (0.0-3.0); HEMATOCRIT 40.4 % (36.0-47.0); HEMOGLOBIN 13.1 g/dl (12.0-15.5); LYMPH # 1.6 10^3/uL (1.5-4.5); MEAN CORPUSCULAR HEMOGLOBIN 28.9 pg (27.0-33.0); MEAN CORPUSCULAR HGB CONC 32.4 g/dl (32.0-36.5); MONO # 0.3 10^3/uL (0.0-0.8); NEUTROPHILS # 3.5 10^3/uL (1.8-7.7); NEUTROPHILS % 64.3 % (36.0-66.0); PLATELET COUNT, AUTOMATED 236 10^3/uL (150-450); RED BLOOD COUNT 4.54 10^6/uL (4.00-5.40); WHITE BLOOD COUNT 5.4 10^3/uL (4.0-10.0)
[2018-12-23 16:54] LABS: THYROID STIMULATING HORMONE 1.54 uIU/ML (0.358-3.740)
[2018-12-23 18:40] LABS: HEMOGLOBIN A1c 4.9 %
== END ==
LOC: M SFHCLERA 11:10
PROVIDERS: ATTEND Family Medicine
DX: R53.83 Other fatigue (principal)

== ENCOUNTER → 2019-03-23 | Outpatient (REF) | payer OTHER ==
[2019-03-23 20:23] LABS: FERRITIN 18 NG/ML (8-252); IRON (FE) 49 UG/DL (50-170); PERCENT SATURATION 14.3 % (13.2-45.0); RHEUMATOID FACTOR QUANT < 10.0 IU/ML (<15.0); TOTAL IRON BINDING CAPACITY 343 UG/DL (250-450)
[2019-03-23 22:24] LABS: CHLAMYDIA DNA AMPLIFICATION NEGATIVE (NEGATIVE); GC DNA AMPLIFICATION NEGATIVE (NEGATIVE)
[2019-03-26 00:08] LABS: ANA (HEP2) Negative (.); CYCLIC CITRULLINATED PEPTIDE 8 units (0-19); SSA SJOGRENS A <0.2 AI (0.0-0.9); SSB SJOGRENS B <0.2 AI (0.0-0.9)
== END ==
LOC: M SFHCLERA 15:43
PROVIDERS: ATTEND Family Medicine
DX: Z11.3 Encounter for screening for infections with a predominantly sexual mode of transmission (principal); H04.123 Dry eye syndrome of bilateral lacrimal glands; L60.3 Nail dystrophy

== ENCOUNTER → 2019-06-16 | Outpatient (REF) | payer OTHER ==
[2019-06-16 18:43] LABS: FOLATE 20.4 NG/ML; TOTAL 25(OH) VITAMIN D 17.1 NG/ML (30.0-100.0)
[2019-06-21 11:45] LABS: ALDOLASE 2.8 U/L (3.3-10.3); Lyme Disease IgG/IgM Antibodie <0.91 ISR (0.00-0.90); Lyme Disease IgM Ab Quantitati <0.80 index (0.00-0.79); VITAMIN B1 LEVEL WHOLE BLOOD 171.2 nmol/L (66.5-200.0); VITAMIN B6,PYRIDOXAL PHOSPHATE 6.2 ug/L (2.0-32.8); VITAMIN E(ALPHA TOCOPHEROL) 9.8 mg/L (5.9-19.4); VITAMIN E(GAMMA TOCOPHEROL) 1.4 mg/L (0.7-4.9)
== END ==
LOC: M LABNEURO 14:51
PROVIDERS: ATTEND Psychiatry & Neurology Neurology
DX: R20.0 Anesthesia of skin (principal); R53.1 Weakness; E55.9 Vitamin D deficiency, unspecified

== ENCOUNTER → 2021-11-12 | Outpatient (REF) | payer OTHER ==
[2021-11-12 16:38] LABS: BASO # 0.1 10^3/uL (0.0-0.2); BASO % 0.5 % (0.0-1.0); EOS # 0.1 10^3/uL (0.0-0.5); EOS % 0.7 % (0.0-3.0); HEMATOCRIT 37.2 % (36.0-47.0); HEMOGLOBIN 11.9 g/dl (12.0-15.5); LYMPH # 3.4 10^3/uL (1.5-5.0); MEAN CORPUSCULAR HEMOGLOBIN 25.9 pg (27.0-33.0); MONO # 0.6 10^3/uL (0.0-0.8); MONO % 5.3 % (2.0-8.0); NEUTROPHILS # 6.5 10^3/uL (1.5-8.5); NEUTROPHILS % 61.2 % (36.0-66.0); PLATELET COUNT, AUTOMATED 275 10^3/uL (150-450); RED BLOOD COUNT 4.59 10^6/uL (4.00-5.40); WHITE BLOOD COUNT 10.6 10^3/uL (4.0-10.0)
[2021-11-12 17:07] LABS: TOTAL PROTEIN,RANDOM URINE 13.7 MG/DL (0.0-12.0)
[2021-11-12 17:08] LABS: ALBUMIN 3.6 GM/DL (3.2-5.2); ALT/SGPT 12 U/L (12-78); BILIRUBIN,TOTAL 0.3 MG/DL (0.2-1.0); BLOOD UREA NITROGEN 12 MG/DL (7-18); C REACTIVE PROTEIN QUANTITATIV 1.25 MG/DL (0.00-0.30); CALCIUM LEVEL 9.1 MG/DL (8.5-10.1); CARBON DIOXIDE LEVEL 26 MEQ/L (21-32); CHLORIDE LEVEL 108 MEQ/L (98-107); COMPLEMENT C3 151 MG/DL (90-180); COMPLEMENT C4 35 MG/DL (10-40); CREATININE FOR GFR 0.76 MG/DL (0.55-1.30); GLOMERULAR FILTRATION RATE > 60.0 (>60); GLUCOSE, FASTING 84 MG/DL (70-100); POTASSIUM SERUM 3.8 MEQ/L (3.5-5.1); SODIUM LEVEL 139 MEQ/L (136-145); TOTAL PROTEIN 7.7 GM/DL (6.4-8.2)
[2021-11-12 17:26] LABS: APPEARANCE, URINE CLEAR (CLEAR); BACTERIA, URINE AUTO NEGATIVE (NEGATIVE); BILIRUBIN, URINE AUTO NEGATIVE (NEGATIVE); BLOOD, URINE BLOOD NEGATIVE (NEGATIVE); COLOR, URINE YELLOW (YELLOW); GLUCOSE, URINE (UA) AUTO NEGATIVE (NEGATIVE); KETONE, URINE AUTO NEGATIVE (NEGATIVE); LEUKOCYTE ESTERASE, URINE AUTO NEGATIVE (NEGATIVE); NITRITE, URINE AUTO NEGATIVE (NEGATIVE); PROTEIN, URINE AUTO NEGATIVE (NEGATIVE); RBC, URINE AUTO 0 /HPF (0-3); SPECIFIC GRAVITY URINE AUTO 1.016 (1.002-1.035); SQUAMOUS EPITHELIAL CELL UR AU 2 /HPF (0-6); UROBILINOGEN, URINE AUTO 0.2 mg/dL (0.0-2.0); WBC, URINE AUTO 0 /HPF (0-3)
[2021-11-12 18:04] LABS: ERYTHROCYTE SEDIMENTATION RATE 51 mm/hr (0-20)
== END ==
LOC: M SFHCRHEU 15:17
PROVIDERS: ATTEND Internal Medicine Rheumatology
DX: O09.291 Supervision of pregnancy with other poor reproductive or obstetric history, first trimester (principal); M25.50 Pain in unspecified joint; R76.8 Other specified abnormal immunological findings in serum; O26.891 Other specified pregnancy related conditions, first trimester

== ENCOUNTER 2022-10-16 02:03 | Emergency (ER) | payer OTHER ==
[~2022-10-16] VITALS: Ht 170.2 cm; Wt 96.3 kg
[2022-10-16 03:30] VITALS: BP 144/87
[2022-10-16] MEDS ORDERED: FLUTISP (04:04)
[2022-10-16] MEDS ORDERED: MUPI2OI TOP (04:04)
== END 2022-10-16 04:15 | disposition home or self-care (01) ==
LOC: M ED 02:03
DX: J01.90 Acute sinusitis, unspecified (principal); R04.0 Epistaxis; E78.5 Hyperlipidemia, unspecified; Z88.0 Allergy status to penicillin; Z88.1 Allergy status to other antibiotic agents; Z88.2 Allergy status to sulfonamides; Z79.899 Other long term (current) drug therapy

== ENCOUNTER 2023-04-06 03:24 | Emergency (ER) | payer OTHER ==
[~2023-04-06] VITALS: Ht 170.2 cm; Wt 92.9 kg
[~2023-04-06 03:24] MED LIST changes: +FLUT50SP17; +MUPI2OI TOP
[2023-04-06 10:22] LABS: THYROID STIMULATING HORMONE 4.42 uIU/ML (0.55-4.78)
[2023-04-06 10:23] LABS: FREE T4 1.12 NG/DL (0.89-1.76)
[2023-04-06 10:29] VITALS: BP 113/64; TEMP 97.1; O2SAT 100
== END 2023-04-06 11:28 | disposition home or self-care (01) ==
LOC: M ED 03:24
DX: H53.9 Unspecified visual disturbance (principal); Z88.0 Allergy status to penicillin; Z88.2 Allergy status to sulfonamides; Z88.8 Allergy status to other drugs, medicaments and biological substances; Z79.899 Other long term (current) drug therapy; Z79.810 Long term (current) use of selective estrogen receptor modulators (SERMs)

== ENCOUNTER 2023-12-30 14:50 | Emergency (ER) | payer OTHER ==
[~2023-12-30] VITALS: Ht 170.2 cm; Wt 93.4 kg
[~2023-12-30 14:50] MED LIST changes: -FLUT50SP17; +FLUTISP
[2023-12-30 14:51] VITALS: BP 137/69; TEMP 98.5; O2SAT 100
[2023-12-30] MEDS ORDERED: SOMA350T PO (19:36)
== END 2023-12-30 20:03 | disposition home or self-care (01) ==
LOC: M ED 14:50
DX: M54.17 Radiculopathy, lumbosacral region (principal); M79.7 Fibromyalgia; Z79.899 Other long term (current) drug therapy; Z88.0 Allergy status to penicillin; Z88.1 Allergy status to other antibiotic agents; Z88.2 Allergy status to sulfonamides

== ENCOUNTER 2024-01-08 04:50 | Emergency (ER) | payer OTHER ==
[~2024-01-08] VITALS: Ht 170.2 cm; Wt 93.4 kg
[~2024-01-08 04:50] MED LIST changes: +SOMA350T PO
[2024-01-08] MEDS ORDERED: IBUP200T46 PO (11:34)
[2024-01-08] MEDS ORDERED: LEVO50TA5 PO (11:34)
[2024-01-08] MEDS ORDERED: LEVO25TA5 PO (11:34)
[2024-01-08 13:22] LABS: BASO # 0.1 10^3/uL (0.0-0.2); BASO % 0.5 % (0.0-1.0); EOS # 0.1 10^3/uL (0.0-0.5); EOS % 0.8 % (0.0-3.0); HEMATOCRIT 39.2 % (36.0-47.0); HEMOGLOBIN 12.6 g/dl (12.0-15.5); LYMPH % 27.1 % (24.0-44.0); MEAN CORPUSCULAR HEMOGLOBIN 26.6 pg (27.0-33.0); MEAN CORPUSCULAR HGB CONC 32.1 g/dl (32.0-36.5); MEAN CORPUSCULAR VOLUME 82.7 fl (80.0-96.0); MONO # 0.6 10^3/uL (0.0-0.8); MONO % 5.5 % (2.0-8.0); NEUTROPHILS # 7.4 10^3/uL (1.5-8.5); NEUTROPHILS % 65.8 % (36.0-66.0); PLATELET COUNT, AUTOMATED 310 10^3/uL (150-450); RED BLOOD COUNT 4.74 10^6/uL (4.00-5.40); WHITE BLOOD COUNT 11.2 10^3/uL (4.0-10.0)
[2024-01-08 13:37] LABS: ALBUMIN 3.6 G/DL (3.2-5.2); ALKALINE PHOSPHATASE 95 U/L (46-116); ALT/SGPT 11 U/L (7.0-40); AST/SGOT < 8 U/L (<34); BILIRUBIN,DIRECT 0.2 MG/DL (<0.4); BILIRUBIN,TOTAL 0.5 MG/DL (0.3-1.2); BLOOD UREA NITROGEN 10 MG/DL (9-23); CALCIUM LEVEL 9.5 MG/DL (8.5-10.1); CARBON DIOXIDE LEVEL 29 MMOL/L (20-31); CHLORIDE LEVEL 105 MMOL/L (98-107); GLOMERULAR FILTRATION RATE > 60.0 (>60); GLUCOSE, FASTING 96 MG/DL (60-100); POTASSIUM SERUM 4.9 MMOL/L (3.5-5.1); SODIUM LEVEL 139 MMOL/L (136-145); TOTAL PROTEIN 7.3 G/DL (5.7-8.2)
[2024-01-08 13:38] LABS: HCG, SERUM QUALITATIVE NEGATIVE (NEGATIVE)
[2024-01-08 14:00] LABS: ERYTHROCYTE SEDIMENTATION RATE 54 mm/hr (0-20)
[2024-01-08 14:58] VITALS: BP 127/72; TEMP 98.8; O2SAT 99
[2024-01-08] MEDS ORDERED: CEPH500C PO (15:19)
[2024-01-12 20:13] LABS: LYME TOTAL ANTIBODY CIA <= 0.90 Index (<=0.90)
== END 2024-01-08 15:29 | disposition home or self-care (01) ==
LOC: M ED 04:50
DX: M54.50 Low back pain, unspecified (principal); L66.2 Folliculitis decalvans; K60.2 Anal fissure, unspecified; Z88.0 Allergy status to penicillin; Z88.2 Allergy status to sulfonamides; Z88.1 Allergy status to other antibiotic agents; Z79.1 Long term (current) use of non-steroidal anti-inflammatories (NSAID); Z79.899 Other long term (current) drug therapy

== ENCOUNTER 2024-01-17 07:01 | Emergency (ER) | payer OTHER ==
[~2024-01-17 07:01] MED LIST changes: +CEPH500C PO; +IBUP200T46 PO; +LEVO25TA5 PO; +LEVO50TA5 PO
[2024-01-17 09:15] LABS: HEMATOCRIT 36.4 % (36.0-47.0); HEMOGLOBIN 12.1 g/dl (12.0-15.5); MEAN CORPUSCULAR HEMOGLOBIN 27.1 pg (27.0-33.0); MEAN CORPUSCULAR HGB CONC 33.2 g/dl (32.0-36.5); MEAN CORPUSCULAR VOLUME 81.6 fl (80.0-96.0); PLATELET COUNT, AUTOMATED 283 10^3/uL (150-450); RED BLOOD COUNT 4.46 10^6/uL (4.00-5.40); WHITE BLOOD COUNT 11.3 10^3/uL (4.0-10.0)
[2024-01-17 09:20] LABS: ERYTHROCYTE SEDIMENTATION RATE 55 mm/hr (0-20)
[2024-01-17 09:42] LABS: C REACTIVE PROTEIN QUANTITATIV 1.7 MG/DL (<1.0); MAGNESIUM LEVEL 1.9 MG/DL (1.8-2.4)
[2024-01-17 09:52] LABS: AMPHETAMINES LEVEL URINE NEGATIVE (NEGATIVE)
[2024-01-17 09:53] LABS: BARBITURATES URINE NEGATIVE (NEGATIVE); BENZODIAZEPINES URINE NEGATIVE (NEGATIVE); CANNABINOIDS URINE NEGATIVE (NEGATIVE); COCAINE METABOLITE URINE NEGATIVE (NEGATIVE); METHADONE URINE NEGATIVE (NEGATIVE); OPIATES URINE NEGATIVE (NEGATIVE); PHENCYCLIDINE URINE NEGATIVE (NEGATIVE)
[2024-01-17] MEDS: predniSONE 20 MG TAB PO ONE (10:45)
[2024-01-17 10:49] VITALS: BP 135/87; TEMP 99; O2SAT 100
[2024-01-17] MEDS ORDERED: PRED20TA PO (11:10)
== END 2024-01-17 11:29 | disposition home or self-care (01) ==
LOC: M ED 07:01
DX: F41.0 Panic disorder [episodic paroxysmal anxiety] (principal); M79.10 Myalgia, unspecified site; E03.9 Hypothyroidism, unspecified; E06.3 Autoimmune thyroiditis; M48.00 Spinal stenosis, site unspecified; Z79.899 Other long term (current) drug therapy; Z88.0 Allergy status to penicillin; Z88.1 Allergy status to other antibiotic agents; Z88.2 Allergy status to sulfonamides; Z88.8 Allergy status to other drugs, medicaments and biological substances
CPT/HCPCS: 80307; 82550; 83735; 85027; 85652; 86140; 86618; 86757; 99284; J7512